=== PATIENT | male | born 1975 | race Caucasian/White ===

== ENCOUNTER 2023-01-03 15:42 | Outpatient (OUT) | payer OTHER, SELFPAY ==
--- NOTE | 2023-01-03 15:44 | US_ITS ---
The [address] [address] Patient Name: LEONA HAJI MRN: [id number] date: 1975 Sex: M Assigned Patient Location: US Current Patient Location: US Accession/Order Number: [id number] Exam Date: 01/03/2023 15:45 Report Date: 01/03/2023 23:15 At the request of: VALERIA PAVON Procedure: US right upper quadrant ULTRASOUND RIGHT UPPER QUADRANT HISTORY: Right upper quadrant pain. COMPARISON: Ultrasound 08/07/2021. FINDINGS: The liver is diffusely echogenic which limits the sensitivity for intrahepatic masses. There is no intrahepatic biliary ductal dilatation. There is focal fatty sparing adjacent to the gallbladder. The gallbladder appears unremarkable with no evidence for gallbladder wall thickening or pericholecystic fluid. The common bile duct measures 3.2 mm. Negative Burrows's sign. The visualized portions of the pancreas appear unremarkable. The right kidney is normal appearing with no evidence of hydronephrosis or masses. US/US right upper quadrant IMPRESSION: Echogenic liver consistent with hepatocellular disease such as fatty infiltration. Electronically authenticated by: SAL SWARTZ Date: 01/03/2023 23:15
== END 2023-01-03 15:43 | disposition home or self-care (01) ==
LOC: US 15:42
PROVIDERS: PCP Family Medicine; Visit Provider Family Medicine
DX: K82.4 Cholesterolosis of gallbladder (principal); K76.9 Liver disease, unspecified
CPT/HCPCS: 76705